=== PATIENT | female | born 1980 | race Caucasian/White ===

== ENCOUNTER 2024-09-01 16:24 | Emergency (ER) | payer OTHER, SELFPAY ==
[2024-09-01 16:32] VITALS: BP 137/77
--- NOTE | 2024-09-01 17:49 | ED.GENMED ---
History of Present Illness
General
Chief Complaint: Abdominal Symptoms
Time Seen by Provider: 09/01/24 17:49
History of Present Illness
History of Present Illness:
TIME OF INITIAL ENCOUNTER: 6:15 PM
HPI: The patient presents with concerns for dehydration. She has had painless diarrhea for the past week or so. She has had no nausea or vomiting. She has not been on any antibiotics recently. In the past, she has had some issues with eating and
since being on a PPI she has dramatically improved. She said that she think she may have had 1 episode of pink-tinged appearance when she wiped herself the other day after having a bowel movement but this was self-limited. Of note, she has
declined digital rectal examination.
EXAM:
GENERAL: Well appearing in no distress
HEENT: Very dry oral mucosa
CARDIOVASCULAR: No murmurs, borderline tachycardic heart rate, regular rhythm, No chest wall tenderness
PULMONARY: No respiratory distress, breath sounds are clear and equal
ABDOMEN: Soft with no peritoneal signs, no tenderness
NEUROLOGIC: Excellent strength all extremities, no coordination deficits
PSYCHIATRIC: Appropriate mental status, normal insight and judgement
EXTREMITIES: Nontender, no edema, moves all extremities equally
SKIN: No rash, no lesions
NUMBER AND COMPLEXITY OF PROBLEMS ADDRESSED AT THE ENCOUNTER
� Chronic conditions affecting care: Is known to GI related to digestive issues
� Acute Exacerbation and/or Progression of Chronic Illness: This is a subacute problem
� Differential Diagnosis includes: Dehydration, HARRISON, viral diarrhea, bacterial diarrhea, foodborne illness
AMOUNT AND/OR COMPLEXITY OF DATA TO BE REVIEWED AND ANALYZED
� I performed an independent evaluation of and my interpretation is:
EKG:
CT:
X-rays:
Laboratory Studies: CBC and chemistries unremarkable, normal renal function
Other:
� Review of other/old records: I reviewed records, the patient had breast reduction surgery in 2017
� Clinical information was obtained by an independent historian: None needed
� Prescriptions/Medications Considered but not given:
� Further testing considered but not performed: No CT imaging, nontender abdomen.
RISK OF COMPLICATIONS AND/OR MORBIDITY OR MORTALITY OF PATIENT MANAGEMENT
� Social determinants of health affecting care: Lives at home, works as a adult basic education teacher
� Discussion with other providers:
� Escalation of care including admission/observation vs risk of discharge considered: The patient does appear somewhat dehydrated. I have ordered 2 L of IV fluids. She has no pain or tenderness on examination.
ANY OTHER UPDATES:
7:40 PM: I reassessed patient. Overall she feels improved after 1.5 L of IV fluids. She states that today she did have less frequency of diarrhea and only went 3 times. She was unable to give us a stool sample today. She is eager to go home.
She has never had any abdominal pain.
Phy Exam
Physical Exam
Physical Exam:
See HPI
Course
Orders/Labs/Results
Orders:
Orders
09/01/24 17:50
STOOL [C difficile Antigen & Toxins] Urgent
RADHA Source: Feces/Stool
Specimen Description:
Stool Culture Urgent
RADHA Source: Feces/Stool
Specimen Description:
0.9% Sodium Chloride 1000 ml [Nss] 1,000 ml IV BOLUS
09/01/24 18:15
Complete Blood Count/With Diff Urgent
Comprehensive Metabolic Panel Urgent
UA Reflex to Culture [Urinalysis Reflex To Culture] Urgent
Date Specimen was Collected: 09/01/24
Time Specimen was Collected: 18:05
0.9% Sodium Chloride 1000 ml [Nss] 1,000 ml IV BOLUS
Abnormal Lab Results
09/01/24
18:15
MCV 79.3 L fL
(81.0-99.0)
Abs Immat Gran (auto) 0.1 H 10^3/uL
(0-0.05)
Immature Gran % 0.9 H %
(0-0.5)
AST 44 H U/L
(14-36)
ALT 56 H U/L
(0-35)
09/01/24 18:15
09/01/24 18:15
Vital Signs
Initial and Last Documented VS:
Initial Vital Signs
Temp Pulse Resp BP Pulse Ox
37.0 C 96 18 137/77 100
09/01/24 16:32 09/01/24 16:32 09/01/24 16:32 09/01/24 16:32 09/01/24 16:32
Last Documented Vital Signs
Temp Pulse Resp BP Pulse Ox
37.0 C 94 18 116/75 99
09/01/24 16:32 09/01/24 18:05 09/01/24 16:32 09/01/24 18:05 09/01/24 18:05
*Critical Care Note
Total Time (30-74mins, 75-104mins- exclusive of procedures): Not Applicable
ED Attending Note
-
Portions of this chart may have been created with voice recognition software.� Occasional wrong word or��sound alike� substitutions may have occurred due to the inherent limitations of voice recognition software.
Discharge Plan
Departure
Patient Disposition: Home (Routine Discharge)
Date of Disposition: 09/01/24
Time of Disposition: 19:40
Patient with high blood pressure during this ER visit?: Yes
Discharge Problem:
Diarrhea
Instructions: Diarrhea in teens and adults, Dehydration, Adult (DC)
Referrals:
Elvis Cee PA-C [Family Provider] -
Activity Restrictions/Additional Instructions:
The blood work is reassuring and shows no signs of severe dehydration. Your kidney function is normal. On your urinalysis the 'specific gravity and ketones' are both normal suggesting no sign of any significant dehydration. We did give you nearly
2 L of fluid. Return here if worse or other concerns. Follow-up with your GI doctor.
Interventions
Interventions:
*Risk Screen - Suicide Last Done: 09/01/24 16:32
*General Assessment Last Done: 09/01/24 18:05
*Neglect/Abuse Screening Last Done: 09/01/24 16:32
*ED- Fall Risk Assessment Last Done: 09/01/24 18:05
*ED COVID-19 Vaccine History Last Done: 09/01/24 16:32
CQ-Syfzqd-Jgvlztwibi Assessment Last Done: 09/01/24 18:05
Discharge Date and Time
Print Language: SYRIAN
[2024-09-01 18:05] VITALS: BP 116/75; BMI 24.4
[2024-09-01 18:09] VITALS: BP 116/75
[2024-09-01] MEDS: NSS 1000 IV ×2 (18:23→19:12)
[2024-09-01 18:31] LABS: Urine Albumin Negative (Neg - Trace); Urine Bilirubin Negative (Negative); Urine Character Clear (Clear); Urine Color Yellow; Urine Glucose Negative (Negative); Urine Ketone Negative (Negative); Urine Leukocyte Negative (Negative); Urine Nitrite Negative (Negative); Urine Occult Blood Negative (Negative); Urine Urobilinogen Negative (Neg - 1+)
[2024-09-01 18:38] LABS: Hematocrit 39.4 % (37.0-47.0); Hemoglobin 13.8 g/dL (12.0-16.0); Mean Corpuscular Hgb 27.8 pg (27.0-31.0); Mean Corpuscular Volume 79.3 fL (81.0-99.0); Mean Platelet Volume 8.9 fL (7.4-10.4); Platelet Count 276 10^3/uL (130-400); Red Blood Cell Count 4.97 10^6/uL (4.20-5.40); Red Cell Dist. Width 12.5 % (11.5-14.5); White Blood Cell Count 5.8 10^3/uL (4.8-10.8)
[2024-09-01 18:51] LABS: ALT (SGPT) 56 U/L (0-35); AST (SGOT) 44 U/L (14-36); Albumin 4.8 g/dl (3.5-5.0); Alkaline Phosphatase 72 U/L (38-126); Blood Urea Nitrogen 9 mg/dl (7-17); Calcium 9.9 mg/dl (8.4-10.2); Carbon Dioxide 22 mmol/L (22-30); Chloride 106 mmol/L (98-107); Estimated Creatinine Clearance 83 ml/min; Glucose 84 mg/dl (70-99); Potassium 3.6 mmol/L (3.5-5.1); Sodium 140 mmol/L (135-145); Total Bilirubin 0.6 mg/dl (0.2-1.3); Total Protein 7.7 g/dl (6.3-8.2); eGFR > 60.00
[2024-09-01 19:00] VITALS: BP 110/73
[2024-09-01 19:17] LABS: % Basophils 0.7 % (0-2); % Eosinophils 1.7 % (0-6); % Immature Granulocytes 0.9 % (0-0.5); % Lymphocytes 37.8 % (20.5-51.1); % Monocytes 6.7 % (1.7-9.3); % Neutrophils 52.2 % (42.2-75.2); Absolute Eosinophils 0.1 10^3/uL (0-0.7); Absolute Immature Granulocytes 0.1 10^3/uL (0-0.05); Absolute Lymphocytes 2.2 10^3/uL (1.2-3.4); Absolute Monocytes 0.4 10^3/uL (0.1-0.6); Nucleated Red Blood Cells % 0 %
== END 2024-09-01 19:57 | disposition home or self-care (01) ==
LOC: EMR 16:24
PROVIDERS: EMERGENCY PHYSICIAN Emergency Medicine; FAMILY PHYSICIAN Physician Assistant Medical
DX: R19.7 Diarrhea, unspecified (principal); E86.0 Dehydration
CPT/HCPCS: 99284; 96360; 80053; 81003; 85025

== ENCOUNTER 2025-05-25 17:31 | Emergency (ER) | payer OTHER, SELFPAY ==
[2025-05-25 17:38] VITALS: BP 137/95
[2025-05-25 17:56] VITALS: BP 128/74
[2025-05-25 17:57] VITALS: BMI 25.3
[2025-05-25 18:00] VITALS: BP 122/71
[2025-05-25 18:32] LABS: Hematocrit 40.0 % (37.0-47.0); Hemoglobin 13.6 g/dL (12.0-16.0); Mean Corp Hgb Conc. 34.0 g/dL (33.0-37.0); Mean Corpuscular Volume 80.6 fL (81.0-99.0); Nucleated Red Blood Cells % 0 %; Platelet Count 252 10^3/uL (130-400); Red Cell Dist. Width 13.2 % (11.5-14.5)
--- NOTE | 2025-05-25 18:34 | ED.GENMED ---
History of Present Illness
General
Chief Complaint: Chest Pain
Source: patient
Exam Limitations: none
Time Seen by Provider: 05/25/25 18:25
Nursing documentation reviewed up to this point in time: agreed with
History of Present Illness
History of Present Illness:
45-year-old female with history of MVP, Crohn's disease presents for chest pain that began this afternoon while she was engaged in last-minute shopping and wrapping. She describes the pain as a stabbing, sharp sensation, which worsens with deep
breaths and wraps around to her back, with pressure radiating up into her neck. The pain continues despite rest, and she measured her blood pressure, which was elevated at 135/87 'which is really high for me,' initially, though subsequent readings
were normal. There is no association with movement or palpation of the chest. It is only deep breaths that makes the pain worse. The patient denies any accompanying symptoms such as malaise, recent travel, or prolonged immobility.
Past History
Past History
ED Past Medical History: Other (Mitral valve prolapse, Crohn's disease)
ED Past Surgical History: Gynecological and Orthopedic
Social History
Tobacco: Non-smoker
Alcohol: None
Personal:
Living: with family
Employment: Employed (science teacher)
Review of Systems
Review of Systems
Allergies reviewed?: Yes
All Other Systems: ROS reviewed and negative except as documented in HPI and ROS
Constitutional: Denies fever or fatigue
EENT: Denies sore throat
Respiratory: Denies cough or trouble breathing
Cardiac: Reports chest pain; Denies diaphoresis or palpitations
ABD/GI: Denies abdominal pain or nausea
Musculoskeletal: Reports neck pain (Right side of neck) and back pain (Left upper back)
Skin: Reports no symptoms
Neurological: Reports no symptoms
Phy Exam
Physical Exam
Physical Exam:
GENERAL: No acute distress. A&Ox3.
CONSTITUTIONAL: Afebrile.
EYES: clear, conjunctivae normal
ENMT: moist mucus membranes, Pharynx nl
RESPIRATORY: Regular respirations, nonlabored, lungs clear.
CARDIOVASCULAR: Regular rate and rhythm, no murmurs, no rubs.
GI: Soft, nontender, normal BS
MUSCULOSKELETAL: Unable to reproduce chest or back pain with palpation or movement. Moves with ease. Well perfused.
SKIN: Warm, dry, pink
PSYCH: Normal mood and affect. Well kept, interactive and appropriate
NEUROLOGIC: Awake, alert and oriented. No focal neurological deficits
Scores
Heart Score for Chest Pain Patients
STEMI patient?: Not applicable
Course
Orders/Labs/Results
Orders:
Orders
05/25/25 17:31
EKG [Electrocardiogram (*1)] Urgent
Reason for Study: Chest Pain
05/25/25 17:32
EKG- Treatment ONCE
05/25/25 18:22
Cardiac Monitoring- Treatment ONCE
IV Insert/Care/Rem.- Treatment PRN
Test Result ONCE
O2 Therapy [RESP] Urgent
Titrate/Wean O2 to maintain O2 sat greater than (%): 90
Special Instructions: Maintain sats >/=90%
Pulse Ox/spot Check [RESP] Urgent
Quantity: 1
Special Instructions: ON ROOM AIR
05/25/25 18:23
Complete Blood Count/With Diff Urgent
Comprehensive Metabolic Panel Urgent
DDimer [D-Dimer] Urgent
HCG, Serum Qualitative Screen Urgent
Comment: Notify provider if positive test present
Troponin I Urgent
05/25/25 18:43
CR Chest - 2 Views Urgent
Comment:
Reason For Exam: left chest pain through to left scapula
Abnormal Lab Results
05/25/25
18:23
MCV 80.6 L fL
(81.0-99.0)
Chloride 110 H mmol/L
(98-107)
Carbon Dioxide 18 L mmol/L
(22-30)
Glucose 101 H mg/dl
(70-99)
05/25/25 18:23
05/25/25 18:23
Vital Signs
Initial and Last Documented VS:
Initial Vital Signs
Temp Pulse Resp BP Pulse Ox
97.9 F 105 20 137/95 100
05/25/25 17:38 05/25/25 17:38 05/25/25 17:38 05/25/25 17:38 05/25/25 17:38
Last Documented Vital Signs
Temp Pulse Resp BP Pulse Ox
97.9 F 81 19 116/70 99
05/25/25 17:38 05/25/25 19:29 05/25/25 19:29 05/25/25 21:14 05/25/25 19:55
MDM/Problems Addressed
Differential Diagnosis Includes:
Costochondritis, pleuritis, GERD, musculoskeletal pain, pericarditis
MDM/Problems Addressed:
45-year-old female with history of MVP, Crohn's disease presents for chest pain that began this afternoon while she was engaged in last-minute shopping and wrapping. She describes the pain as a stabbing, sharp sensation, which worsens with deep
breaths and wraps around to her back, with pressure radiating up into her neck. The pain continues despite rest, and she measured her blood pressure, which was elevated at '135/87 which is really high for me,' initially, though subsequent readings
were normal. There is no association with movement or palpation of the chest. It is only deep breaths that makes the pain worse. The patient denies any accompanying symptoms such as malaise, recent travel, or prolonged immobility.
EKG: NSR heart rate 82
7:30 p.m.
CBC normal
CMP with no clinically significant abnormality
Troponin normal hCG negative
D-dimer within normal limits at 0.32
9:00 PM:
Chest x-ray NAD
Pt sneezed and pain was significant. Most likely costochondritis vs pleurisy
Patient has an appointment with her PCP on 06/02
Stable for discharge
Discussed discharge instructions with her
*Pulse Oximetry
SaO2: 100
Oxygen Mode of Delivery: Room air
Patient hypoxic: no
*EKG
EKG Intrepretation Date: 05/25/25
Interpretation: normal
Heart Rate: 82
Rate: normal
Rhythm: sinus
[place]: normal axis
Interval: normal interval
QRS Pattern: normal QRS
Ischemia: no ischemia
*Critical Care Note
Total Time (30-74mins, 75-104mins- exclusive of procedures): Not Applicable
ED Attending Note
-
Portions of this chart may have been created with voice recognition software.� Occasional wrong word or��sound alike� substitutions may have occurred due to the inherent limitations of voice recognition software.
Discharge Plan
Departure
Patient Disposition: Home (Routine Discharge)
Date of Disposition: 05/25/25
Time of Disposition: 21:14
Patient with high blood pressure during this ER visit?: No
Discharge Problem:
Pleuritic chest pain
Instructions: Pleuritic chest pain - ED (DC)
Referrals:
Cecilia Gordon DO [Family Provider, Family Practice] - Keep scheduled appt
Activity Restrictions/Additional Instructions:
As we discussed, your workup here today shows nothing worrisome
You most likely have pleuritic chest pain from a viral upper respiratory infection
Interventions
Interventions:
*General Assessment Last Done: 05/25/25 17:38
*Neglect/Abuse Screening Last Done: 05/25/25 17:38
*ED COVID-19 Vaccine History Last Done: 05/25/25 19:55
*ED Influenza Vaccine History Last Done: 05/25/25 19:55
[facility] Fall Risk Assessment Tool Last Done: 05/25/25 19:55
*Risk Screen - Suicide (C-SSRS) Last Done: 05/25/25 17:38
*Nursing Disposition Last Done: 05/25/25 21:25
ED- Cardiac Assessment Last Done: 05/25/25 19:55
Discharge Date and Time
Discharge Date/Time: 05/25/25 21:27
Print Language: MAURITIAN
[2025-05-25 18:43] LABS: D-Dimer 0.32 ug/mlFEU (0.00-0.50)
[2025-05-25 18:57] LABS: HCG, Serum Qualitative Screen Negative
[2025-05-25 19:00] VITALS: BP 115/70
[2025-05-25 19:02] LABS: ALT (SGPT) 16 U/L (0-35); AST (SGOT) 19 U/L (14-36); Albumin 4.4 g/dl (3.5-5.0); Alkaline Phosphatase 80 U/L (38-126); Blood Urea Nitrogen 12 mg/dl (7-17); Calcium 9.6 mg/dl (8.4-10.2); Carbon Dioxide 18 mmol/L (22-30); Chloride 110 mmol/L (98-107); Estimated Creatinine Clearance 82 ml/min; Glucose 101 mg/dl (70-99); Potassium 3.7 mmol/L (3.5-5.1); Sodium 138 mmol/L (135-145); Total Protein 7.1 g/dl (6.3-8.2); eGFR > 60.00
[2025-05-25 19:07] LABS: Troponin I < 0.012 ng/ml
[2025-05-25 21:14] VITALS: BP 116/70
== END 2025-05-25 21:27 | disposition home or self-care (01) ==
LOC: EMR 17:31
PROVIDERS: EMERGENCY PHYSICIAN Student in an Organized Health Care Education/Training Program; FAMILY PHYSICIAN Family Medicine
DX: R07.1 Chest pain on breathing (principal); I34.1 Nonrheumatic mitral (valve) prolapse; K50.90 Crohn's disease, unspecified, without complications
CPT/HCPCS: 99284; 71046; 80053; 84484; 84703; 85025; 85379; 93005